=== PATIENT | male | born 1970 | race American Indian/Alaskan Native ===

== ENCOUNTER 2022-03-17 18:44 | Emergency (ER) | payer SELFPAY ==
[2022-03-17 19:16] VITALS: BP 140/69
--- NOTE | 2022-03-17 19:56 | XRay Report ---
Left hand 3 views INDICATION: Pain FINDINGS: There is a boxer's type fracture of the fifth metacarpal with mild angulation and diffuse s oft tissue swelling. MCP joints and IP joints appear normal. IMPRESSION: Boxer's type fracture of the fifth metacarpal. Signer Name: Joe Torres MD Signed: 03/17/2022 7:52 PM Workstation Name: [id number]
[2022-03-17] MEDS ORDERED: IBUPROFEN 600 MG TAB PO ONE (20:56)
[2022-03-17] MEDS ORDERED: ONDANSETRON 4 MG ODT TAB PO ONE (20:56)
[2022-03-17] MEDS ORDERED: HYDROcodone/ACETAMINOPHEN 5-325 MG TAB PO ONE (20:56)
--- NOTE | 2022-03-17 22:18 | Emergency Department Report ---
ED Upper Extremity Inj HPI - General Chief Complaint: Extremity Injury, Upper Stated Complaint: BROKEN LEFT HAND Source: patient Mode of arrival: Ambulatory Limitations: No Limitations - History of Present Illness Initial Comments: Patient is a 52-year-old -Honduran male with no past medical history presents to the ED with complaint of acute onset persistent left hand pain and swelling for the last 6 hours after a heavy metal hit his left hand while trying to repair his vehicle while at work about 6 hours ago. Patient states that since this injury occurred he has not been able to perform any active range of motion of the left hand because of worsening pain. Patient denies fall, nausea and vomiting, physical assault, dizziness, syncope, numbness and tingling or weakness of left hand, chest pain or shortness of breath. MD Complaint: Injury to:: left, hand (Pain and swelling) -: Sudden, hour(s) (6) Other Extremity Injury: Hand: Left (Left hand pain and swelling) Other Injuries: none Place: work Severity scale (0 -10): 8 Improves With: none Worsens With: movement of extremity Context: direct blow (Left hand hit by a heavy metal at work), injury Associated Symptoms: denies other symptoms. denies: weakness, numbness, neck pain, suspects foreign body, nausea/vomiting, heard/felt popping sensat, other - Related Data Previous Rx's Medication Instructions Recorded Last Taken Type HYDROcodone/APAP 5-325 [[place] 1 each PO Q6HR PRN #12 tablet 03/17/22 Unknown Rx 5/325] Ibuprofen [Motrin] 800 mg PO Q8HR PRN #30 tablet 03/17/22 Unknown Rx Allergies Allergy/AdvReac Type Severity Reaction Status Date / Time No Known Allergies Allergy Verified 03/17/22 19:18 ED Review of Systems ROS: Stated complaint: BROKEN LEFT HAND Other details as noted in HPI Constitutional: denies: chills, fever Eyes: denies: eye pain, eye discharge, vision change ENT: denies: ear pain, throat pain Respiratory: denies: cough, shortness of breath, wheezing Cardiovascular: denies: chest pain, palpitations Endocrine: no symptoms reported Gastrointestinal: denies: abdominal pain, nausea, diarrhea Genitourinary: denies: urgency, dysuria Musculoskeletal: joint swelling (Left hand pain with swelling), arthralgia (Left hand pain with swelling). denies: back pain Skin: denies: rash, lesions Neurological: denies: headache, weakness, paresthesias Psychiatric: denies: anxiety, depression Hematological/Lymphatic: denies: easy bleeding, easy bruising ED Past Medical Hx - Medications Home Medications: Home Medications Medication Instructions Recorded Confirmed Last Taken Type HYDROcodone/APAP 5-325 [[place] 1 each PO Q6HR PRN #12 tablet 03/17/22 Unknown Rx 5/325] Ibuprofen [Motrin] 800 mg PO Q8HR PRN #30 tablet 03/17/22 Unknown Rx ED Physical Exam - General Limitations: No Limitations General appearance: alert, in no apparent distress - Head Head exam: Present: atraumatic, normocephalic, normal inspection - Eye Eye exam: Present: normal appearance, PERRL, EOMI Pupils: Present: normal accommodation - ENT ENT exam: Present: normal exam, normal orophraynx, mucous membranes moist, TM's normal bilaterally, normal external ear exam - Neck Neck exam: Present: normal inspection, full ROM. Absent: tenderness - Respiratory Respiratory exam: Present: normal lung sounds bilaterally. Absent: respiratory distress, wheezes, rales, rhonchi, chest wall tenderness, accessory muscle use, decreased breath sounds, prolonged expiratory - Cardiovascular Cardiovascular Exam: Present: regular rate, normal rhythm, normal heart sounds. Absent: systolic murmur, diastolic murmur, rubs, gallop - GI/Abdominal GI/Abdominal exam: Present: soft, normal bowel sounds. Absent: tenderness, guarding, rebound, hyperactive bowel sounds, hypoactive bowel sounds, organomegaly, mass - Extremities Exam Extremities exam: Present: normal inspection, tenderness (Palpable left hand tenderness with mild swelling and limited range of motion due to pain), normal capillary refill, joint swelling (Mild left hand swelling). Absent: full ROM (Limited range of motion of left hand due to pain), calf tenderness - Back Exam Back exam: Present: normal inspection, full ROM. Absent: tenderness, CVA tenderness (R), CVA tenderness (L), muscle spasm, paraspinal tenderness, vertebral tenderness - Neurological Exam Neurological exam: Present: alert, oriented X3, CN II-XII intact, normal gait, reflexes normal - Psychiatric Psychiatric exam: Present: normal affect, normal mood - Skin Skin exam: Present: warm, dry, intact, normal color. Absent: rash ED Course Vital Signs 05/06/22 19:04 Temperature 98.5 F Pulse Rate 68 Respiratory 18 Rate Blood Pressure 140/69 O2 Sat by Pulse 97 Oximetry ED Medical Decision Making - Radiology Data Radiology results: report reviewed, image reviewed [facility] [address] [place] [address] XRay Report Signed Patient: CHRISTINA GARCIA MR#: [id number] : 1970 Acct:[id number] Age/Sex: 52 / M ADM Date: 03/17/22 Loc: ED Attending Dr: Ordering Physician: RADHIKA TATUM MD Date of Service: 03/17/22 Procedure(s): XR hand 3+V LT Accession Number(s): [id number] cc: ED MD RC Fluoro Time In Minutes: Left hand 3 views INDICATION: Pain FINDINGS: There is a boxer's type fracture of the fifth metacarpal with mild angulation and diffuse soft tissue swelling. MCP joints and IP joints appear normal. IMPRESSION: Boxer's type fracture of the fifth metacarpal. Signer Name: Joe Torres MD Signed: 03/17/2022 7:52 PM Workstation Name: [id number] Transcribed By: CW Dictated By: NICOL TORRES MD Electronically Authenticated By: NICOL TORRES MD Signed Date/Time: 03/17/221951 DD/ 50 TD/TT: - Medical Decision Making This is a 52-year-old -H[place]uran male with no past medical history presents to the ED with complaint of acute onset persistent left hand pain and swelling for the last 6 hours after a heavy metal hit his left hand while trying to repair his vehicle while at work about 6 hours ago. Patient states that since this injury occurred he has not been able to perform any active range of motion of the left hand because of worsening pain. In the ED, patient is alert and oriented x3 and is not in any distress. Patient was treated for pain in the ED and left hand x-ray showed a boxer's type fracture of the fifth metacarpal with mild angulation and diffuse soft tissue swelling. MCP joints and IP joints appear normal. Left hand was splinted with ulnar gutter splint following pain medication administration. On reevaluation, the left hand pain is well controlled medication and the hand is neurovascularly intact after application of the ulnar gutter splint. Patient was discharged home and given a prescription for pain medications and referral to orthopedic surgeon on-call Dr. Pena for further evaluation and follow-up. Patient is advised to contact Dr. Pena's office for thing in the morning on Friday, February 18, 2022 to schedule a follow-up appointment. Patient is advised return to the ED immediately if symptoms get worse. - Differential Diagnosis Hand fracture; finger fracture; hand contusion; hand sprain Critical care attestation.: If time is entered above; I have spent that time in minutes in the direct care of this critically ill patient, excluding procedure time. ED Disposition Clinical Impression: Contusion of left hand, initial encounter Displaced fracture of neck of left fifth metacarpal bone Qualifiers: Encounter type: initial encounter Fracture type: closed Qualified Code(s): S62.337A - Displaced fracture of neck of fifth metacarpal bone, left hand, initial encounter for closed fracture Disposition: HOME / SELF CARE / HOMELESS Is pt being admited?: No Does the pt Need Aspirin: No Condition: Stable Instructions: Metacarpal Fracture, [id number], Boxer's Fracture, Hand Contusion, [id number] Additional Instructions: Your left hand x-ray showed displaced left fifth metacarpal fracture at the neck. Therefore take pain medication as needed with food, drink plenty of fluids, follow-up with the orthopedic surgeon on-call Dr. Pena for further evaluation. Contact Dr. Pena's office first thing in the morning on Friday, February 18, 2022 to schedule a follow-up appointment. Return to the ED immediately if symptoms get worse. Prescriptions: Ibuprofen [Motrin] 800 mg PO Q8HR PRN #30 tablet PRN Reason: Pain , Severe (7-10) HYDROcodone/APAP 5-325 [[place] 5/325] 1 each PO Q6HR PRN #12 tablet PRN Reason: Pain Referrals: EDI PENA MD [Staff Physician] - 3-5 Days Forms: Work/School Release Form(ED) Time of Disposition: 22:17 Print Language: MALDIVIAN
== END 2022-03-17 23:40 | disposition home or self-care (01) ==
LOC: ED 18:44
DX: S62.337A Displaced fracture of neck of fifth metacarpal bone, left hand, initial encounter for closed fracture (principal); W22.8XXA Striking against or struck by other objects, initial encounter; Y93.89 Activity, other specified; Y92.89 Other specified places as the place of occurrence of the external cause; Y99.8 Other external cause status
CPT/HCPCS: 99283; J3490; Q0162